=== PATIENT | female | born 1990 | race Asian ===

== ENCOUNTER → 2017-04-25 | Outpatient (CLI) | payer OTHER ==
--- NOTE | 2017-04-25 15:19 | MAMMOGRAPHY REPORT ---
UNILATERAL RIGHT DIGITAL DIAGNOSTIC MAMMOGRAM TOMOSYNTHESIS WITH CAD AND TARGETED RIGHT ULTRASOUND: CLINICAL HISTORY: 27-year-old woman presents with a right axillary lump that she has noticed for 2 ye ars and it has not significantly changed in size over the course of that time. No skin thickening or erythema. Family history of breast cancer = onset and grandmother. A prior outside ultrasound performed on 03/15/2017 demonstrated a hypoechoic, ovoid 1.1 x 0.3 cm lesi on in the right axilla that was thought to represent a lipoma but considered indeterminate. TECHNIQUE: A right MLO 2-D and tomosynthesis view was obtained after placement of a skin palpable ma rker in the area of concern in the right axilla. A CC view was not performed given the axillary loca tion of the palpable abnormality. COMPARISON: Comparison is made to exam dated: 04/25/2017 ultrasound - [facility]. BREAST COMPOSITION: The tissue of the right breast is heterogeneously dense, which may obscure small masses. FINDINGS: First targeted ultrasound was performed in the area of concern pointed out by the patient, within the superior lateral right axilla with the patient in the left lateral decubitus right arm ex tended position. In the area of concern, there is an island of breast tissue, most compatible with a ccessory breast tissue. No suspicious solid or cystic mass is identified. In particular, the previo usly measured isoechoic to hypoechoic 1 cm lesion seen on the ultrasound performed one 05/03/2017 is no longer identified. No suspicious lymphadenopathy is seen. For confirmation of the suspected accessory breast tissue, a single right MLO view was performed with a triangle shaped palpable marker overlying the area of concern described by the patient. On the to mosynthesis images, there is an asymmetry that has the appearance of fibroglandular tissue in the rig ht axilla, most compatible with accessory breast tissue. No suspicious solid or cystic mass is seen within the breast on the right MLO view mammographically. There is no focal skin thickening. No kareem picious adenopathy. IMPRESSION: ACR BI-RADS CATEGORY 2: BENIGN, TARGETED ULTRASOUND ACR BI-RADS CATEGORY 2: BENIGN 1. The chronic palpable lump in the right axilla is most compatible with accessory breast tissue, se en both mammographically and sonographically. 2. A previously measured possible hypoechoic 1 cm mass is not currently seen. As I review the prior outside ultrasound images, the measured mass has the appearance of normal subcutaneous tissues. Nev ertheless, continued clinical follow-up is recommended. It should be noted that biopsy of a clinical ly suspicious mass should not be precluded by negative imaging. These results and recommendations were discussed with the patient at the time of the exam. Approximately 10% of breast cancers are not detected with mammography. A negative mammographic report should not delay biopsy if a clinically suggestive mass is present. Leah Mcmahan M.D. ay/:04/25/2017 09:35:31 Management Planner: Kacy Robles, [facility] letter sent: Normal 1/2 BI-RADS Code: ACR BI-RADS Category 2: Benign Ultrasound BI-RADS: ACR BI-RADS Category 2: Benign
== END | disposition home or self-care (01) ==
LOC: C.MAMM 08:57
PROVIDERS: ATTEND Surgery
DX: R92.8 Other abnormal and inconclusive findings on diagnostic imaging of breast (principal); N63.10 Unspecified lump in the right breast, unspecified quadrant